=== PATIENT | female | born 1980 | race Caucasian/White ===

== ENCOUNTER 2023-03-14 21:07 | Outpatient (REF) | payer OTHER, SELFPAY ==
[2023-03-19 19:15] LABS: Age Gdln ACOG Testing Note (.); HPV Aptima Negative (Negative); IGP, Aptima HPV, rfx 16/18,45 Note (.)
== END 2023-03-14 21:08 | disposition home or self-care (01) ==
LOC: LAB 21:07
PROVIDERS: Visit Provider Obstetrics & Gynecology
DX: Z01.419 Encounter for gynecological examination (general) (routine) without abnormal findings (principal)
CPT/HCPCS: 87624; G0145

== ENCOUNTER 2024-03-25 11:46 | Outpatient (REF) | payer OTHER, SELFPAY | END 2024-03-25 11:47 | disposition home or self-care (01) | LOC: LAB 11:46 | PROVIDERS: Visit Provider Obstetrics & Gynecology | DX: Z01.419 Encounter for gynecological examination (general) (routine) without abnormal findings (principal) | CPT/HCPCS: 88175 ==

== ENCOUNTER 2025-03-27 19:21 | Outpatient (REF) | payer OTHER, SELFPAY ==
--- OUTSIDE RECORDS SUMMARY | 2025-03-27 19:41 | XMS_ITS | CCD ---
Author Organization [facility] Care Team Providers Care City Supervisor Name Role Phone Deneen Smith Unavailable [phone] ALTAF SÁNCHEZ Primary Care Physician LUIS, DR BROTHERS Admitting Unavailable LUIS, DR BROTHERS Attending Unavailable LUIS, DR BROTHERS Primary Care Unavailable JOSE, DR BARRY Johnson Consulting Unavailable LUIS, DR BROTHERS Consulting Unavailable HOOD LOPEZ, DR SHERIE De Leon Admitting Juan Luis MORATAYA JR, DR SHERIE De Leon Attending Unavailfarideh SMITH, DR BROTHERS Primary Care Unavailable JOSE, DR BARRY Johnson Consulting Unavailable HOOD LOPEZ, DR SHERIE De Leon Consulting Unavailfarideh MORATAYA JR, DR SHERIE De Leon Admitting Unavailfarideh MORATAYA JR, DR SHERIE De Leon Attending Unavailfarideh SMITH, DR BROTHERS Primary Care Unavailable RADHA, DR MARNIE Quan Consulting Unavailable HOOD LOPEZ, DR SHERIE De Leon Consulting UnavailDanisha Rivas Attending Unavailable ANISA PATE Attending Unavailable Travis Orlando PA-C Primary Care Provider [phone] Altaf Sánchez MD Primary Care Provider ALBARO ALVAREZ Attending Unavailable ADITYA HERNANDEZ Attending Unavailable JR. TELLO GEORGE C Attending Troya nikita TELLO JR., GEORGE C Referring UnavailDENEEN Islas Attending Unavailable ADITYA HERNANDEZ Attending Unavailable ANISA PATE Referring Unavailable DENEEN SMITH Referring Unavailable Medications Current Medications Medication Drug Class(es) Dates Sig (Normalized) Sig (Original) Tylenol (15 sources) Start: 10-02-2019 Tylenol Oral, Daily, PRN as needed for pain, Refills(s) 0 Start Date: 10/02/19 Status: Ordered End: 03-27-2025 take 1 tablet by mouth every six hours as needed acetaminophen (Tylenol) 500 MG tablet Take 500 mg by mouth every 6 (six) hours if needed 03/27/2025 Discontinued acetaminophen (T YLENOL) 325 mg cap Take 325 mg by mouth as needed. 0 Active Comment on above: Take 325 mg by mouth as needed. empagliflozin 25 mg oral tablet (2 sources) Sodium-Glucose Cotransporter 2 Inhibitor Start: take 25 mg by mouth once daily Jardiance 25 MG Take 25 mg by mouth 1 (one) time each day at the same time 02/25/2025 Active fluconazole 100 mg oral tablet (2 sources) Azole Antifungal Start: End: take 1 tablet by mouth once daily fluconazole (Diflucan) 100 MG tablet Indications: Burning with urination , Vaginal discharge Take 1 tablet (100 mg) by mouth Daily for 10 days 10 tablet 03/27/2025 04/06/2025 Active hydroCHLOROthiazide 12.5 mg / lisinopril 20 mg oral tablet (15 sources) Thiazide Diuretic, Angiotensin Converting Enzyme Inhibitor Start: take 1 tablet by mouth once daily lisinopril-hydroCH LOROthiazide (PRINZIDE,ZESTORET IC) 20-12.5 mg per tablet Take 1 tablet by mouth daily. 03/31/2020 Active Comment on above: Take 1 tablet by donte th once daily. 24 hr metFORMIN hydrochloride 750 mg extended release oral tablet (15 sources) Biguanide Start: 024 metformin 750 mg ER Tab Refills(s) 0 Start Date: 09/10/24 Status: Ordered Start: 04-08-2020 take 1 tablet by donte th once daily metFORMIN (GLUCOPHAGE) 500 mg tablet Take 500 mg by mouth daily. 05/01/2020 Active Comment on above: Take 500 mg by mouth once daily. mupirocin 0.02 mg/mg topical ointment (1 source) RNA Synthetase Inhibitor Antibacterial Start: 01-26-2021 mupirocin (BACTROBAN) 2 % ointment APPLY TO AFFECTED AREA EVERY DAY 01/26/2021 Active rosuvastatin calcium 20 mg oral tablet (9 sources) HMG-CoA Reductase Inhibitor Start: 11-19-2024 rosuvastatin (Crestor) 20 MG tablet 1 (one) time each day at the same time 11/19/2024 Active Completed/Discontinued Medications Medication Drug Class(es) Dates Sig (Normalized) Sig (Original) ciprofloxacin 500 mg oral tablet (2 sources) Quinolone Antimicrobial Start: 2 Cipro 500 mg Tab 500 mg = 1 tab(s), Oral, As Directed, Take 1 tab the day before the procedure, then take 1 tab after the procedure., # 2 tab(s), Refills(s) 0, Pharmacy: [facility]/pharmacy #[id number], 170, cm, 01/11/22 12:13:00 EDT, Height/Length Dosing, 111, kg, 01/11/22 12:13:... Start Date: 01/11/22 Status: Ordered diclofenac sodium 0.01 mg/mg topical gel (9 sources) Nonsteroidal Anti-inflammatory Drug Start: 4 End: 5 Voltaren Arthritis Pain 1 % gel apply topically TO KNEES TWICE DAILY 11/24/2023 03/27/2025 Discontinued methylPREDNISolone (9 sources) Corticosteroid Start: 5 End: 5 methylPREDNISolone (Medrol Dospak) 4 MG tablets Indications: Acute pain of right knee Follow schedule on package instructions 21 tablet 11/26/2024 03/27/2025 Discontinued Start: 11-26-2024 methylPREDNISo lone (Medrol Dospak) 4 MG tablets Indications: Acute pain of right knee Follow schedule on package instructions 21 tablet 11/26/2024 Active Problems Active Problems Problem Classification Problem Date Documented Date Episodic/Chronic Calculus of urinary tract (11 sources) History of calculus of kidney; Translations: [Personal history of urinary calculi] Onset: 01-11-2022 Episodic Cancer of uterus (5 sources) Malignant neoplasm of endometrium of corpus uteri ; Translations: [Malignant neoplasm of endometrium] Onset: 08-24-2018 08-24-2018 Chronic Essential hypertension (3 sources) Hypertensive disorder 08-07-2019 Chronic Genitourinary symptoms and ill-defined conditions (16 sources) Blood in urine; Translations: [Hematuria, unspecified] Onset: 01-11-2022 Episodic Immunizations and screening for infectious disease (2 sources) Exposure to sexually transmissible disorder; Translations: [Contact with and (suspected) exposure to infections with a predominantly sexual mode of transmission] 03-27-2025 Episodic Other aftercare (1 source) History of malignant neoplasm of endometrium; Translations: [Encounter for follow-up examination after completed treatment for malignant neoplasm] Episodic Other connective tissue disease (4 sources) Pain of toes of bilateral feet; Translations: [Pain in right toe(s)] 01-07-2025 Episodic Other diseases of kidney and ureters (2 sources) Renal mass 08-28-2019 Chronic Other diseases of kidney and ureters (1 source) Other specified disorders of kidney and ureter; Translations: [OTHER SPEC DISORDERS KIDNEY URETER] Onset: 02-02-2022 Chronic Other diseases of kidney and ureters (3 sources) Acquired renal cyst without neoplastic change; Translations: [Cyst of kidney, acquired] Onset: 01-11-2022 Episodic Other diseases of kidney and ureters (3 sources) Cyst of kidney 10-27-2020 Episodic Other female genital disorders (2 sources) Vaginal discharge; Translations: [Other specified noninflammatory disorders of vagina] 03-27-2025 Episodic Other male genital disorders (3 sources) Cyst of epididymis 10-12-2020 Episodic Other screening for suspected conditions (not mental disorders or infectious disease) (6 sources) Encounter for screening mammogram for malignant neoplasm of breast; Translations: [Patient encounter status] Onset: 07-22-2022 Episodic Other skin disorders (4 sources) Ingrowing nail; Translations: [Ingrowing nail] 01-07-2025 Episodic Skin and subcutaneous tissue infections (4 sources) Paronychia of toe of right foot; Translations: [Cellulitis of right toe] 01-07-2025 Episodic Unclassified (3 sources) Asymptomatic microscopic hematuria 01-11-2022 Past or Other Problems Problem Classification Problem Date Documented Da te Episodic/Chronic Abdominal pain (3 sources) Left flank pain; Translations: [Unspecified abdominal pain] Onset: 02-02-2022 08-07-2019 Episodic Mood disorders (1 source) Mood disorders Onset: 05-05-2021 05-05-2021 Other diseases of kidney and ureters (4 sources) Cyst of kidney, acquired; Translations: [CYST OF KIDNEY ACQUIRED] Onset: 05-03-2022 Episodic Other upper respiratory disease (1 source) Bleeding from nose; Translations: [Epistaxis] Onset: 03-18-2021 03-18-2021 Episodic Other upper respiratory disease (1 source) Deviated nasal septum; Translations: [Deviated nasal septum] Onset: 03-18-2021 03-18-2021 Episodic Results Test Name Value Interpretation Reference Range Facility Urinalysis macro (dipstick) panel (U)on 03-27-2025 Bilirubin, UA Negative Negative - 4(70) +++ mg/dL [facility] Blood, UA Negative Negative - 50 Jone/mcL [facility] Clarity, UA Clear [facility] Color, UA Yellow [facility] Glucose, UA Positive Negative - 2000(110) ++++ mg/dL [facility] Interpretation and review of laboratory results Abnormal [facility] Ketones, UA Negative Negative - 160(16) ++++ mg/dL [facility] Leukocytes, UA Negative Negative - 500+++ Emerald/mcL [facility] Nitrite, UA Negative Negative - Positive [facility] pH, UA 6 5 - 9 [facility] Protein, UA Negative Negative - 2000(20) ++++ mg/dL [facility] Spec Grav, UA 1.02 1 - 1.03 [facility] Urobilinogen, UA 1.0 0.2 - 12 mg/dL [facility] BI MAMMOGRAM SCREENING TOMOS YNTHESIS BILATERALon 09-24-2024 BI MAMMOGRAM SCREENING TOMOSYNTHESIS BILATERAL This is a summary report. The complete report is available in the patient's medical record. If you cannot access the medical record, please contact the sending organization for a detailed fax or copy. Examination: BI MAMMOGRAM SCREENING TOMOSYNTHESIS BILATERAL Clinical History: Breast cancer screening Technique: Screening digital mammography study of both breasts was performed with 2-D and 3-D tomosynthesis imaging. Study was compared to the prior exam dated 08/29/2023. Findings: There is no evidence of interval dominant spiculated mass, grouped microcalcifications, or skin thickening which would be suggestive of malignancy. Benign-appearing asymmetric density in the superolateral aspect of the right breast similar to the prior study. IMPRESSION: Impression: No specific evidence of malignancy seen in either breast. BIRADS 2 - Benign Findings DENSITY: There are scattered areas of fibroglandular density. FOLLOW-UP: Routine Screening Mammogram ELECTRONICALLY SIGNED BY: Forrest Vergara M.D. Normal Not Available Urology Office/Clinic Noteon 09-10-2024 Urology Office/Clinic Note Urology Office/Clinic Note Chief Complaint 1 yr fu HPI Staff Pt here for 1yr f/u. KUB NOMS 08/27/24 - No stones. ELYSE NOMS 08/27/24 - No stones or hydro. Previous Dx: kidney stone, asymptomatic microscopic hematuria, renal cyst Dysuria: no Incomplete bladder emptying: no Hematuria: no Frequency: q3-4hrs Urgency: no Nocturia: 0-1x Stream: good stream Leaking: no Post void dripping: no Wearing pads/ Depends: no Urge incontinence: no Stress incontinence: no Incontinence without Sensory Awareness: no Abdominal pain: no Flank pain: no Sexual complaints: no Review of Systems PHQ Score Initial Depression Screen Score: 0 SCORE Physical Exam Vitals & Measurements HR: 87(Peripheral) BP: 119/79 HT: 67 in HT: 170 cm WT: 105 kg WT: 231.485 lb BMI: 36.33 Assessment/Plan Former DDM, 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 BBSQ 5 very good control. No urinary complaints. 1. Kidney stone (N20.0: Calculus of kidney) Pt has passed several stones previously. CT AP w 01/28/22 showed 3mm distal R ureteral stone without hydro (no pain at the time, was done due to microhematuria). KUB done 05/03/22 - No visible urinary tract calculi. Pt never saw stone pass. KUB 06/27/23 1.3 cm calculi overlying the mid to upper pole of the left renal shadow. ELYSE 06/27/23 neg for stones or hydronephrosis. Declined metabolic eval. KUB NOMS 08/27/24 - No stones. ELYSE NOMS 08/27/24 - No stones or hydro. No stone passage in the past year. Had 1 episode of flank pain that she thought was a stone starting but she laid on a heating pad and the pain improved luckily. Denies gross hematuria. No issues w UTIs. Has drastically increased water intake and cut down on pop (very rare now). -f/u 1 yr w KUB/ELYSE 2. Asymptomatic microscopic hematuria (R31.21: Asymptomatic microscopic hematuria) Neg workup including cysto, cytology and CT spring 2021 None on UA today. Denies gross hematuria. Ordered: Urnls Dip Stick Auto w/o Microscopy POC [id number] 3. Renal cyst, left (N28.1: Cyst of kidney, acquired) Cyst was noted on CT AP 01/28/22 Renal US 06/27/23 9 x 9 x 5 mm anechoic area of the left kidney is most likely a cyst. -Follow up is not warranted for simple cysts Follow-up With When Contact Information Dr Danisha Salazar/Susie Ruiz PAC in 1 yr w KUB/ELYSE prior Additional Instructions: Patient Education Kidney Stones, [id number] Problem List/Past Medical History Ongoing Asymptomatic microscopic hematuria Kidney stone Renal cyst, left Historical Epididymal cyst Gross hematuria Hypertension Uterine cancer Procedure/Surgical History Cystoscopy (02/07/2022), Colonoscopy (06/2020), Hysterectomy (12/17/2016). Medications hydrochlorothiazide-lisinopril 12.5 mg-20 mg Tab, 1 tab(s), Oral, Daily metformin 750 mg ER Tab Tylenol, Oral, Daily, PRN Allergies No Known Allergies Social History Alcohol - Low Risk, 08/28/2019 Current. Wine. 1-2 times per month., 09/10/2024 Substance Abuse - Denies Substance Abuse, 05/29/2020 Never., 09/10/2024 Tobacco - Denies Tobacco Use, 08/28/2019 Former smoker, quit more than 30 days ago Tobacco Use:., 09/10/2024 Family History Diabetes mellitus: Brother. Diabetes mellitus type 2: Mother. Heart disease: Father. Immunizations Vaccine Date Status Comments influenza virus vaccine, inactivated - Not Given Postpone due to refusal diphtheria/pertussis, acel/tetanus adult 10/03/2017 Recorded Lab Results Ambulatory Point of Care Results Bilirubin Urine Dipstick: Negative (09/10/24 11:03:00) Blood Urine Dipstick: Negative (09/10/24 11:03:00) Glucose Urine Dipstick: Negative (09/10/24 11:03:00) Ketones Urine Dipstick: Trace - 5 mg/dl (09/10/24 11:03:00) Leukocytes Urine Dipstick: Negative (09/10/24 11:03:00) Nitrite Urine Dipstick: Negative (09/10/24 11:03:00) Protein Urine Dipstick: Negative (09/10/24 11:03:00) Specific [place] Urine Dipstick: 1.025 (09/10/24 11:03:00) Urine Appearance Urine Dipstick: Clear (09/10/24 11:03:00) Urine Color Urine Dipstick: Yellow (09/10/24 11:03:00) Urobilinogen Urine Dipstick: Normal 0.2-1 EU/dl (09/10/24 11:03:00) pH Urine Dipstick: 5.5 (09/10/24 11:03:00) Normal [facility] Comment on above: Result Comment: Electronically Signed By : ANISA PATE PA-C.isabelle\Date and Time Signed: 09/10/24 11:34 EST US RENAL COMPLETEon 08-27-20 US RENAL COMPLETE EXAM: Renal Ultrasound. REASON FOR EXAM: Kidney stone. COMPARISON: 06/27/2023 ultrasound. TECHNIQUE: Real-time ultrasonographic evaluation of the kidneys is performed with color flow Doppler. FINDINGS: Right kidney: Normal parenchymal thickness and echogenicity. Left kidney: Normal parenchymal thickness and echogenicity. Uniform and symmetric blood flow in each kidney by Doppler ultrasound. Negative for hydronephrosis, retroperitoneal mass, fluid collection or stone. Bladder: Bladder contains fluid. Both ureteral jets are documented in the urinary bladder. Aorta and inferior vena cava: Patent by Doppler ultrasound. Measurements: Right kidney: 12.9 x 6.2 x 7.6 cm Left kidney: 12.5 x 6 x 5.8 Bladder Prevoid: 257.8 mL Bladder Postvoid: 18.2 mL IMPRESSION: Negative retroperitoneal Ultrasound. Urolithiasis not identified. *This report is generated using voice recognition reporting (Drip In). On occasion TrenDemone erroneously drops words from the report or replaces the spoken word with similar sounding words. Please call with any questions/concerns regarding this report.* Dictated and transcribed 08/27/2024/tm This report has been electronically signed and approved by the interpreting radiologist. Normal Not Available XR ABDOMEN 1 VIEWon 08-27-20 XR ABDOMEN 1 VIEW XR ABDOMEN 1 VIEW Clinical History: History of kidney stones Reference Exam: None Findings: The abdominal bowel gas pattern is nonobstructive. No mass, organomegaly, or suspicious calcification. Negative for free intraperitoneal air. The skeleton is unremarkable. Impression: Negative for intestinal stasis. Urolithiasis is not identified by routine radiographic assessment. Dictated on: 08/27/2024 10:13 AM This report has been electronically signed and approved by the interpreting Radiologist. Normal Not Available MG MAMM SCREEN 3D BRI CADon 07-22-2022 MG MAMM SCREEN 3D BRI CAD Patient: ANISA SAMANO Exam Date: 07/22/2022 : 1980 Gender:F Ordering : DR DENEEN SMITH . Admission #: [id number] Family : Order #: [id number] CLICK HERE TO VIEW EXAM RADIOLOGY REPORT PROCEDURE: MAMMOGRAM SCREENING 3D BILATERAL CAD COMPARISON: MG MAMM SCREEN 3D BRI CAD, 07/21/2021. MG MAMM SCREEN BRI W CAD, 06/30/2020. INDICATIONS: Screening mammography Calculator Name NCI Breast Cancer Risk Assessment Tool 5 Year Breast Cancer Risk Not Reported. Lifetime Breast Cancer Risk Not Reported. Personal Breast Cancer No Personal Ovarian Cancer No Treatments None Family Cancers None LOCATION: [facility] BREAST COMPOSITION: Heterogeneously dense,which may obscure small masses. FINDINGS: DIAGNOSTIC CATEGORY 1--NEGATIVE. NO CHANGE FROM COMPARISON ASSESSMENT. Scattered benign-appearing nodules are present. RIGHT BREAST: No significant suspicious finding. LEFT BREAST: No significant suspicious finding. RECOMMENDATIONS: ROUTINE MAMMOGRAM AND CLINICAL EVALUATION IN 12 MONTHS. PLEASE NOTE: A NORMAL MAMMOGRAM DOES NOT EXCLUDE THE POSSIBILITY OF BREAST CANCER. A CLINICALLY SUSPICIOUS PALPABLE LUMP SHOULD BE BIOPSIED. Dictated by: Barry Garcia MD on 07/22/2022 at 13:04 Approved by: Barry Garcia MD on 07/22/2022 at 13:05 Normal [facility] XR KUB 1 VIEWon 05-04-2022 XR KUB 1 VIEW EXAMINATION: XR KUB 1 VIEW HISTORY: H/O: urinary stone ; follow-up left kidney stone COMPARISON: No relevant comparison available. FINDINGS: KIDNEY/URETER - RIGHT: No visible renal or ureteral calcifications. KIDNEY/URETER - LEFT: No visible renal or ureteral calcifications. PELVIS: No visible ureteral stones. BOWEL: No abnormal dilation or deviation. BONES: No acute abnormality. OTHER: Negative. No abnormal gaseous collections. IMPRESSION: 1. No visible urinary tract calculi. Electronically authenticated by: MARNIE GARCIA Date: 2022-05-04 12:03 Normal [facility] CT ABD/PELV W CONon 05-13-[address] ABD/PELV W CON EXAMINATION: CT ABD/PELV W CON, 01/28/2022 10:17 AM EDT HISTORY: Microscopic hematuria COMPARISON: None. TECHNIQUE: CT scan of the abdomen and pelvis was performed without IV contrast. CT dose reduction technique was used, including Automated Exposure Control. FINDINGS: LUNG BASES: No visible pulmonary or pleural disease. LIVER: Hypoattenuation, hepatic steatosis is favored BILIARY: No dilatation or calcification. PANCREAS: No lesion, fluid collection, ductal dilatation, or atrophy. SPLEEN: No enlargement or focal lesion. ADRENALS: No mass or enlargement. KIDNEYS: 3 mm distal right ureterolith, axial image 130, 1 cm proximal to the ureterovesical junction. No right hydronephrosis or hydroureter Normal left. BOWEL/MESENTERY: Nonobstructive bowel gas pattern. Normal appendix. AORTA/VASCULAR: No aneurysm or dissection. RETROPERITONEUM: No mass or adenopathy. LYMPH NODES: No adenopathy. URINARY BLADDER: No visible focal wall thickening, lesion, or calculus. PELVIC ORGANS: Hysterectomy. The ovaries are prominent bilaterally symmetric ABDOMINAL WALL: Laxity of the ventral abdominal wall the umbilicus with a 1 cm umbilical hernia containing fat without strangulation BONES: No bony lesion or fracture. OTHER: Call result initiated through operations. IMPRESSION: 3 mm distal right ureterolith with no obstructive uropathy Hepatic steatosis Electronically authenticated by: BARRY GARCIA Date: 2022-01-28 13:32 Normal [facility] ANISA SAMAN[facility] ([id number]) 1980 F Date Time Provider Department 12/10/21 THUY SIN During your visit today, we recorded the following information about you: Thuy Sin APRN.MERCHANT TAILOR 12/10/2021 1:11 PM Signed Please let patient know urinalysis showing a small amount of red blood cells in the urine. The urine culture is negative for an infection. I would recommend patient see a urologist given there is some blood in the urine, along with patients reports of blood noted after urination. She can see a local urologist-I placed an order in our system which can be printed and mailed if needed. The most recent pelvic US she had completed at [facility] was 05/2021 and was normal. thanks Michelle Mackey RN 12/10/2021 1:24 PM Signed Spoke with patient and relayed message from [employer]ODUCT SAF[employer]Y EXPERT. Agreeable to plan. Will see her local Urolgist (she has a hx kidney stones). Order and UA results emailed to patient per her request Allergies As of Date: 12/10/2021 (No Known Allergies) Date Reviewed: 12/10/2021 Reviewed by: Thuy Sin APRN.MERCHANT TAILOR - Fully Assessed Reason for Visit: Results [95] Primary Visit Diagnosis:Hematuria, unspecified type [R31.9] Order(s):CONSULT TO UROLOGY [9041] Order #: [id number]: 1 FUTURE Prescriptions as of 12/10/2021 - metFORMIN (GLUCOPHAGE) 500 mg tablet Take 500 mg by mouth once daily. - acetaminophen (TYLENOL) 325 mg cap Take 325 mg by mouth as needed. - lisinopril-hydrochlorothiazide (PRINZIDE,ZESTORETIC) 20-12.5 mg per tablet Take 1 tablet by mouth once daily. Problem List As Of Date 12/10/2021 Noted Resolved Endometrial cancer (HCC) [C54.1] 08/24/2018 Encounter Status:Closed by MICHELLE MACKEY on 12/10/21 Normal [facility] URINE CULTUREon 12-09-2021 Bacteria identified Cx Nom (U) <10,000 CFU/ml Mixed microbiota Abnormal [facility] Bacteria Ur Culton Bacteria identified Cx Nom (U) ORGANISM ID: 1 <10,000 CFU/ml Mixed microbiota Insignificant colony count. No further workup. Normal [facility] Comment on above: Performed By: #### [id number] #### [facility] CLIA [id number] [address] [place], [place] [id number] [address] [place] CNOVSPon 12-08-2021 CNOVSP Visit (SP) Office (G YNML) ANISA SAMANO ([id number]) 1980 F Date Time Provider Department 12/08/21 1:15 PM THUY SIN During your visit today, we recorded the following information about you: Temperature Pulse Respiration Blood pressure 98.6 degrees 101/minute 14/minute 133/80 Weight 111.5 kg Thuy Sin, FIRST FRONT VENTILATOR.MERCHANT TAILOR 12/10/2021 1:11 PM Signed DATE OF SERVICE: 12/08/2021 PROBLEM: Follow up for endometrial cancer. HPI: Ms. Samano is a 41 year old female with past medical history of HTN and prior essure who underwent supra-cervical abdominal hysterectomy and salpingectomy on 12/30/2016 for abnormal uterine bleeding. Her pathology came back c/w grade 1 endometrial cancer limited to the endometrium. Intra-operatively per operative report, her ovaries were normal. 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 FINAL DIAGNOSIS 1. Uterus, supracervical hysterectomy (BH17-71): Endometrium - Well-differentiated endometrial adenocarcinoma, mucinous type, FIGO grade 1, associated with complex atypical endometrial hyperplasia. Myometrium - Adenomyosis. 2. Fallopian tubes, right and left, excision (BS17-71) - Negative for neoplasm. COMMENT The endometrium is almost completely replaced by a proliferative lesion including atypical endometrial hyperplasia and well-differentiated mucinous adenocarcinoma. The atypical hyperplasia slightly predominates. Myometrial invasion is not identified. Vascular invasion is not identified. ? MMR testing was normal. CT scan C/A/P 08/01/2017 IMPRESSION: 1. No evidence of intra-abdominal/pelvic metastases. 2. Previously noted cystic density in the left adnexa has resolved. 3. 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 4. Nonobstructing left renal stone. 5. Diffuse fatty infiltration of the liver. IMPRESSION: 1. Nonspecific subcentimeter sclerotic density in the T7 vertebral body, stable. 2. Otherwise no evidence of intrathoracic metastases. No interval change since 02/07/2017. 3. Findings compatible with previous granulomatous disease. 03/12/2019 Pelvis US Nonspecific hyperechoic (1.4 x 1.0 x 1.1) within the left ovary. Hemorrhagic cyst vs. Dermoid, favoring hemorrhagic. New since 2017. Pelvic US 09/27/2019 PELVIC US 05/30/2020 PELVIC ULTRASOUND 05/2021 SUBJECTIVE HISTORY: Anisa Samano reports that she feels well. No vaginal bleeding or discharge. No shortness of breath, cough, or chest pain. No abdominal pain, nausea, vomiting, diarrhea, or constipation. No dysuria, gross hematuria, urinary frequency, urinary urgency, or incontinence. Her ECOG performance status is zero (fully active, able to carry on all pre-disease performance without restriction). Continues to follow regularly with scholastic aptitude test grader close to home OBJECTIVE: BP 133/80 Pulse 101 Temp 37 ?C (98.6 ?F) Resp 14 Wt 111.5 kg (245 lb 12.8 oz) BMI 38.22 kg/m? GENERAL: alert, oriented, pleasant and cooperative. HEENT: Normocephalic and atraumatic. HEART: Regular rate and rhythm, no murmurs. LUNGS: Clear to auscultation bilaterally. Good air exchange. ABDOMEN: Abdomen soft, non-tender, nondistended PELVIC: External genitalia, anus and urethral meatus are normal in appearance and without lesions. Vagina and remaining cervix are normal in appearance on speculum examination. Bimanual pelvic and rectovaginal examination were negative for urethral, bladder or pelvic masses, parametrial thickening or cul-de-sac nodularity. There were no rectal masses. 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 12/2016 Normal MMR expression Ovarian cysts-resolved ?hematuria PLAN: - doing well, no clinical evidence of disease recurrence on exam - patient notes blood after urination-unsure of source. Only noted when toileting. Will follow up with UA and urine culture. - pap/hpv up to date - annual pelvic ultrasound-most recently completed 05/2021 OSH-reviewed and normal. - chest xray 10/2020 normal - mammogram up to date at OSH - RTC 12 months, patient elects to following with in [place]. Can provide any records that are needed to help facilitate this transfer of care. - may return to our office in the future with any questions or concerns Thuy Sin APRN.MERCHANT TAILOR Medical Decision Making: Problems: Moderate: New problem with uncertain prognosis Data: Unique test(s) ordered: 1 Risk: Low: Low risk from testing/treatment Medical Decision Making Level: 3 - Low Referring Provider: THUY SIN [[id number]] Allergies As of Date: 12/08/2021 (No Known Allergies) Date Reviewed: (more content not included)... Normal [facility] Urinalysis complete panel (U )on 12-08-2021 Bilirubin Ql (U) Negative Negative [facility] Clarity (Unsp spec) Clear Clear [facility] Color (U) Light Yellow Yellow [facility] Epithelial cells LM.HPF (Urine sed) [#/Area] Few [facility] Glucose Test strip (U) [Mass/Vol] Negative Negative [facility] Hemoglobin Ql (U) Negative Negative [facility] Ketones Ql (U) Negative Negative [facility] Leukocyte esterase Test strip Ql (U) 75 Emerald/mL Abnormal Negative [facility] Nitrite Ql (U) Negative Negative [facility] pH (U) 5.5 [pH] 5.0 - 8.0 [facility] Protein (U) [Mass/Vol] Negative Negative [facility] RBC LM.HPF (Urine sed) [#/Area] 3-5 /HPF Abnormal 0-3 /HPF [facility] Specific gravity (U) [Rel density] 1.028 1.005 - 1.030 [facility] Urobilinogen Ql (U) Negative Negative [facility] WBC LM.HPF (Urine sed) [#/Area] 6-10 /HPF Abnormal 0-5 /HPF [facility] Bilirubin Ql (U) Negative Normal Negative [facility] Comment on above: Order Comment: Specimen Type: URINE SPEC IMEN Ordering Facility: [facility] Address: [address] [place] [id number] Performed By: #### 2 4356-8 #### [facility] CLIA [id number] [place] [address] [place] Clarity (Unsp spec) Clear Normal Clear [facility] Comment on above: Order Comment: Specimen Type: URINE SPEC IMEN Ordering Facility: [facility] Address: [address] [place] [address] Performed By: #### 2 4356-8 #### [facility] CLIA [id number] [address] [place] [address] [place] Color (U) Light Yellow Normal Yellow [facility] Comment on above: Order Comment: Specimen Type: URINE SPEC IMEN Ordering Facility: [facility] Address: [address] [place] [address] Performed By: #### 2 4356-8 #### [facility] CLIA [id number] [address] [place] [address] [place] Epithelial cells LM.HPF (Urine sed) [#/Area] Few Normal [facility] Comment on above: Order Comment: Specimen Type: URINE SPEC IMEN Ordering Facility: [facility] Address: [address] [place] [address] Performed By: #### 2 4356-8 #### [facility] CLIA [id number] [address] [place] [address] [place] Glucose Test strip (U) [Mass/Vol] Negative Normal Negative [facility] Comment on above: Order Comment: Specimen Type: URINE SPEC IMEN Ordering Facility: [facility] Address: [address] [place] [address] Performed By: #### 2 4356-8 #### [facility] CLIA [id number] [address] [place] [address] [place] Hemoglobin Ql (U) Negative Normal Negative [facility] Comment on above: Order Comment: Specimen Type: URINE SPEC IMEN Ordering Facility: [facility] Address: [address] [place] [address] Performed By: #### 2 4356-8 #### [facility] CLIA [id number] [address] [place] [address] [place] Ketones Ql (U) Negative Normal Negative [facility] Comment on above: Order Comment: Specimen Type: URINE SPEC IMEN Ordering Facility: [facility] Address: [address] [place] [address] Performed By: #### 2 4356-8 #### [facility] CLIA [id number] [address] [place] [address] [place] Leukocyte esterase Test strip Ql (U) 75 Emerald/mL Abnormal Negative [facility] Comment on above: Order Comment: Specimen Type: URINE SPEC IMEN Ordering Facility: [facility] Address: [address] [place] [address] Performed By: #### 2 4356-8 #### [facility] CLIA [id number] [address] [place] [address] [place] Nitrite Ql (U) Negative Normal Negative [facility] Comment on above: Order Comment: Specimen Type: URINE SPEC IMEN Ordering Facility: [facility] Address: [address] [place] [address] Performed By: #### 2 4356-8 #### [facility] CLIA [id number] [address] [place] [address] [place] pH (U) 5.5 [pH] Normal 5.0-8.0 [facility] Comment on above: Order Comment: Specimen Type: URINE SPEC IMEN Ordering Facility: [facility] Address: [address] [place] [address] Performed By: #### 2 4356-8 #### [facility] CLIA [id number] [address] [place] [address] [place] Protein (U) [Mass/Vol] Negative Normal Negative [facility] Comment on above: Order Comment: Specimen Type: URINE SPEC IMEN Ordering Facility: [facility] Address: [address] [place] [address] Performed By: #### 2 4356-8 #### [facility] CLIA [id number] [address] [place] [address] [place] RBC LM.HPF (Urine sed) [#/Area] 3-5 /HPF Abnormal 0-3 /HPF [facility] Comment on above: Order Comment: Specimen Type: URINE SPEC IMEN Ordering Facility: [facility] Address: [address] [place] [address] Performed By: #### 2 4356-8 #### [facility] CLIA [id number] [place] Specific gravity (U) [Rel density] 1.028 Normal 1.005-1.03 0 [facility] Comment on above: Order Comment: Specimen Type: URINE SPEC IMEN Ordering Facility: [facility] Address: [address] [place] [address] Performed By: #### 2 4356-8 #### [facility] CLIA [id number] [address] [place] [address] [place] Urobilinogen Ql (U) Negative Normal Negative [facility] Comment on above: Order Comment: Specimen Type: URINE SPEC IMEN Ordering Facility: [facility] Address: [address] [place] [address] Performed By: #### 2 4356-8 #### [facility] CLIA [id number] [address] [place] [address] [place] WBC LM.HPF (Urine sed) [#/Area] 6-10 /HPF Abnormal 0-5 /HPF [facility] Comment on above: Order Comment: Specimen Type: URINE SPEC IMEN Ordering Facility: [facility] Address: [address] [place] [address] Performed By: #### 2 4356-8 #### [facility] CLIA [id number] [address] [place] [address] [place] MOLECULARon 12-06-2017 MOLECULAR PROCEDURE REPORTSpec im #: [id number] Physician: STEPHEN BADILLOPECIMEN SUBMITTEDA: 1 BLOCK (BH17-71; 2) PROCEDURE(S)MMR STATUS Date Ordered: 12/06/2017 Date Reported: 12/10/2017 Procedure Results and InterpretationImmunohistochemistry (IHC) for mismatch repair proteins (MMR) inendometrial carcinomaFinal Diagnosis:Mismatch repair proteins (MLH1, PMS2, MSH2, and MSH6) are expressed incarcinoma nucleiIHC Results (expressed, not expressed or partial loss of expression)PMS2 expressedMLH1 expressedMSH6 expressed MSH2 expressedIHC for MMR proteins was performed on tissue block BH17-71 with appropriatecontrols.Immunohistoche olya (IHC) testing is one of the standard tests completedon all endometrial carcinomas at [facility]. IHC stains for MMRproteins were performed to assist in screening for HNPCC (Carrero Syndrome). Immunohistochemical screen for the detection of MMR proteins is aneffective screen for Carrero syndrome in at least 95% of cases. As clinically indicated, and in the appropriate setting of geneticcounseling with informed patient consent, further molecular genetic testingmay be needed. For more information, please call the [facility] for [facility] at . References:1. Raven Woods et al. Immunohistochemistry versus microsatellite instabilitytesting for screening colorectal cancer patients at risk for hereditarynonpolyposis colorectal cancer syndrome. Am J Surg Pathol 2009, 33:1639-452. Padmini Woods, et al. Implementation of tumor testing for carrero syndrome inendometrial cancers at a large [facility]. Gynecol Oncol.2013, 130(1):121-63. Ariane JS, et al. Testing women with endometrial cancer to detect Lynchsyndrome. J Clin Oncol. 2011, 29:2517Laboratory Developed Test (LDT) Disclaimer:Positive and negative controls stain appropriately. Performancecharacteristics of immunohistochemical, immunofluorescent and chromogenicin-situ hybridization tests have been determined by [facility] Pathology and Laboratory Medicine [place] ([facility]) terrence manner consistent with CLIA requirements. One or more of these tests havenot been cleared or approved by the FDA. -[facility] is regulated under CLIA asqualified to perform high-complexity testing. These tests are used forclinical purposes. They should not be regarded as investigational or forresearch.Procedure Pathologist: Thierno Marquez M.D.Electronic SignatureCLINICAL DATANone provided. of Report: Date of Procedure: 12/06/2017Date of Receipt: 12/06/2017Submitted: FELICITAS MAHDI, MDDiagnostic interpretation performed at [facility], [address] [address]. Normal [facility] Comment on above: Performed By: #### COPATH ####See report for performing lab information. Vital Signs Date Time Vital Sign Value Performing Clinician Zahra moore 03-27-2025 11:15-0400 Body mass index (BMI) [Ratio] 33.8 kg/m2 Deneen Luis DO Work Phone: [facility] 03-27-2025 11:15-0400 Body weight 97.89 kg Deneen Luis DO Work Phone: [facility] 03-27-2025 11:15-0400 Diastolic blood pressure 70 mm[Hg] Deneen Luis DO Work Phone: [facility] 03-27-2025 11:15-0400 Systolic blood pressure 120 mm[Hg] Deneen Luis DO Work Phone: [facility] 01-28-2025 11:12-0400 Body height 170.2 cm Aditya Hernandez DPM Work Phone: [facility] 01-28-2025 11:12-0400 Body mass index (BMI) [Ratio] 36.34 kg/m2 Aditya Hernandez DPM Work Phone: [facility] 01-28-2025 11:12-0400 Body weight 105.23 kg Aditya Hernandez DPM Work Phone: [facility] 01-07-2025 14:23-0400 Body height 170.2 cm Aditya Hernandez DPM Work Phone: [facility] 01-07-2025 14:23-0400 Body mass index (BMI) [Ratio] 36.46 kg/m2 Aditya Hernandez DPM Work Phone: [facility] 01-07-2025 14:23-0400 Body weight 105.6 kg Aditya Hernandez DPM Work Phone: [facility] 09-10-2024 10:56-0500 Blood Pressure Location ANISA PATE [facility] 09-10-2024 10:56-0500 Diastolic blood pressure 79 mm[Hg] ANISA PATE [facility] 09-10-2024 10:56-0500 Heart rate 87 /min ANISA PATE [facility] 09-10-2024 10:56-0500 Systolic blood pressure 119 mm[Hg] ANISA PATE [facility] 02-07-2022 13:04-0400 Blood Pressure Location Sherie Morataya Jr. [facility] 02-07-2022 13:04-0400 Diastolic blood pressure 82 mm[Hg] Sherie Morataya Jr. [facility] 02-07-2022 13:04-0400 Heart rate 81 /min Sherie Morataya Jr. [facility] 02-07-2022 13:04-0400 Systolic blood pressure 135 mm[Hg] Sherie Morataya Jr. [facility] 01-11-2022 12:09-0400 Blood Pressure Location Sherie Morataya Jr. [facility] 01-11-2022 12:09-0400 Diastolic blood pressure 85 mm[Hg] Sherie Morataya Jr. [facility] 01-11-2022 12:09-0400 Heart rate 89 /min Sherie Morataya Jr. [facility] 01-11-2022 12:09-0400 Systolic blood pressure 132 mm[Hg] Sherie Morataya Jr. [facility] 12-08-2021 13:18-0400 Body temperature 98.6 [degF] Thuy Sin FIRST FRONT VENTILATOR.MERCHANT TAILOR Work Phone: [facility] 12-08-2021 13:18-0400 Body weight 111.49 kg Thuy Sin FIRST FRONT VENTILATOR.MERCHANT TAILOR Work Phone: [facility] 12-08-2021 13:18-0400 Diastolic blood pressure 80 mm[Hg] Thuy Sin FIRST FRONT VENTILATOR.MERCHANT TAILOR Work Phone: [facility] 12-08-2021 13:18-0400 Heart rate 101 /min Thuy Sin FIRST FRONT VENTILATOR.MERCHANT TAILOR Work Phone: [facility] 12-08-2021 13:18-0400 Respiratory rate 14 /min Thuy Sin FIRST FRONT VENTILATOR.MERCHANT TAILOR Work Phone: [facility] 12-08-2021 13:18-0400 Systolic blood pressure 133 mm[Hg] Thuy Sin FIRST FRONT VENTILATOR.MERCHANT TAILOR Work Phone: [facility] Encounters Encounter Date Encounter Type Care Provider Facility Start: 09-24-2025 ambulatory Danisha Salazar Facility:[facility] Start: 03-27-2025 End: 03-27-2025 Bamboo flowsheet Deneen Luis DO Work Phone: [facility] Start: 03-27-2025 End: 03-27-2025 Bamboo flowsheet Deneen Luis DO Work Phone: [facility] Start: 03-27-2025 End: 03-27-2025 Patient encounter procedure Deneen Luis DO Work Phone: [facility] Work Phone: Start: 03-27-2025 End: 03-27-2025 Periodic preventive med est patient 40-64yrs Deneen Luis DO Work Phone: [facility] Comment on above: Well woman exam with routine gynecological exam; Breast cancer screening by mammogram; Burning with urination; Exposure to STD; Vaginal discharge Start: 01-28-2025 End: 01-28-2025 Bamboo flowsheet Aditya Hernandez DPM Work Phone: [facility] Start: 01-28-2025 End: 01-28-2025 Bamboo flowsheet Aditya Hernandez DPM Work Phone: [facility] Start: 01-28-2025 End: 01-28-2025 ambulatory ADITYA HERNANDEZ Not Available Start: 01-28-2025 End: 01-28-2025 Postop follow up visit related to original px Aditya Hernandez DPM Work Phone: [facility] Comment on above: Ingrown nail (Primar y Dx); Paronychia of great toe, right; Pain in toes of both feet Start: 01-07-2025 End: 01-07-2025 ambulatory ADITYA HERNANDEZ Not Available Start: 01-07-2025 End: 01-07-2025 Office outpatient visit 15 minutes Aditya Hernandez DPM Work Phone: [facility] Comment on above: Ingrown nail (Primar y Dx); Paronychia of great toe, right; Pain in toes of both feet Start: 01-07-2025 End: 01-07-2025 Bamboo flowsheet Aditya Hernandez DPM Work Phone: [facility] Start: 01-07-2025 End: 01-07-2025 Bamboo flowsheet Aditya Hernandez DPM Work Phone: [facility] Start: 11-26-2024 End: 11-26-2024 ambulatory ALBARO ALVAREZ Not Available Start: 09-24-2024 End: 09-24-2024 ambulatory DENEEN SMITH Not Available Start: 09-10-2024 End: 09-10-2024 ambulatory ANISA Jo-Ann HERLINDA Facility:[facility] Start: 09-10-2024 End: 09-10-2024 Patient encounter procedure ANISA PATE [facility] Start: 08-27-2024 End: 08-27-2024 ambulatory ANISAARTHUR GAMEZRY Not Available Start: 05-10-2024 End: 05-21-2024 Telephone encounter Aditya Aquino FIRST FRONT VENTILATOR-MERCHANT TAILOR Work Phone: [facility] Start: 03-25-2024 End: 03-25-2024 ambulatory DENEEN SMITH Not Available Start: 03-04-2024 End: 03-04-2024 ambulatory KRYSTIAN CRUZ Not Available Start: 07-22-2022 End: 07-23-[address] DENEEN SMITH Facility: Start: 05-03-2022 End: 05-04-[address] SHERIE MORATAYA JR Facility:[facility] Start: 02-07-2022 End: 02-07-2022 Patient encounter procedure Sherie Morataya Jr. [facility] Start: 01-28-2022 End: 01-29-[address] SHERIE MORATAYA JR Facility:[facility] Start: 01-11-2022 End: 01-11-2022 Patient encounter procedure Sherie Morataya Jr. [facility] Start: 12-10-2021 Telephone encounter Thuydharmesh ramos APRN.CNP Work Phone: Gynecology Comment on above: Results Start: 12-08-2021 End: 12-08-2021 Follow-up encounter Thuy Wisemantoni REGALADO Work Phone: Gynecology Comment on above: Encounter for follow -up surveillance of endometrial cancer (Primary Dx); Hematuria, unspecified type Start: 12-08-2021 End: 12-08-2021 Patient encounter procedure Thuy Wisemantoni REGALADO Work Phone: [facility] Procedures Date Procedure Procedure Detail Performing Clinician Start: 03-27-2025 Urnls dip stick/tabl et rgnt non-auto w/o micrscp Deneen Smith DO Work Phone: Start: 02-07-2022 Cystoscopy Sherie hanson Jr. Start: 12-08-2021 End: 12-08-2021 Culture bacterial quanttative colony count urine Thuy Wisemantoni REGALADO Work Phone: Start: 06-18-2020 Colonoscopy Sherie Ricardo hanson Jr. Start: 12-17-2016 Hysterectomy Sherie hanson Jr. Plan of Treatment Date Care Activity Detail Author Start: 10-03-2027 DTaP,Tdap and Td Vaccines (2 - Td or Tdap) DTaP,Tdap and Td Vaccines (2 - Td or Tdap) [facility] Start: 10-03-2027 Urine microalbumin profile DTAP,TDAP,TD (2 - Td or Tdap) [facility] Start: 03-31-2026 End: 03-31-2026 Patient encounter procedure 03/31/2026 11:00 AM EDT Office Visit [facility] [address] [place] [id number] Deneen Smith DO [address] [place] [address] [facility] Start: 09-25-2025 HPV TESTING HPV TESTING [facility] Start: 09-25-2025 PAP TESTING PAP TESTING [facility] Start: 03-27-2025 End: 05-28-2026 MG Breast - bilateral Screening Bilateral screening mammogram Imaging Routine Breast cancer screening by mammogram Expected: 03/27/2025 (Approximate), Expires: 05/28/2026 [facility] Work Phone: Comment on above: Expected: 03/27/2025 (Approximate), Expires: 05/28/2026 Start: 03-27-2025 End: 03-27-2025 Patient encounter procedure 03/27/2025 11:00 AM EDT Office Visit [facility] [address] [place] [address] Deneen Smith DO [address] [place] [place], [place] [id number] [facility] Start: 01-23-2025 End: 01-23-2025 Patient encounter procedure 01/23/2025 1:00 PM EDT Office Visit [facility] [address] [place] [id number] Aditya Hernandez, DPM [address] [place] [address] [facility] Start: 05-19-2024 Influenza vaccination Influenza Vacc ine [facility] Start: 05-19-2021 Influenza vaccination INFLUENZA (#1) [facility] Start: 2019 Mammography MAMMOGRAM [facility] Start: 2000 Screening for malign ant neoplasm of cervix Pap Smear [facility] Start: 1997 Adult BMI Screening Adult BMI Screen ing [facility] Start: 1997 HEPATITIS C SCREENING HEPATITIS C SC REENING [facility] Start: 1997 HIV SCREENING HIV SCREENING [facility] Start: 1991 Adult depression screening assessment DEPRESSION SCREENING [facility] Start: 1991 Tobacco Screening Tobacco Screening [facility] Start: 1984 COVID-19 VACCINE (1) COVID-19 VACCIN E (1) [facility] CHLAMYDIA TRACHOMATI S (GENITO/STI) CHLAMYDIA TRACHOMATIS (GENITO/STI) Lab Routine Exposure to STD Ordered: 03/27/2025 [facility] Comment on above: Ordered: 03/27/2025 Neisseria gonorrhoea e DNA [Presence] in Unspecified specimen by LORETA with probe detection Neisseria gonorrhea DNA probe, direct Lab Routine Exposure to STD Ordered: 03/27/2025 [facility] Comment on above: Ordered: 03/27/2025 SURESWAB(R) ADVANCED VAGINITIS PLUS, TMA SURESWAB(R) ADVANCED VAGINITIS PLUS, TMA Pathology and Cytology Routine Vaginal discharge Ordered: 03/27/2025 [facility] Comment on above: Ordered: 03/27/2025 THIN PREP TIS PAP AN D HR HPV DNA THIN PREP TIS PAP AND HR HPV DNA Pathology and Cytology Routine Well woman exam with routine gynecological exam Ordered: 03/27/2025 [facility] Comment on above: Ordered: 03/27/2025 Immunizations Immunization Date Immunization Notes Care Provider Kirt amaya 10-03-2017 tetanus toxoid, reduced diphtheria toxoid, and acellular pertussis vaccine, adsorbed Thuy Sin APRN.MERCHANT TAILOR Work Phone: [facility] NEGATED: Highlighted row has not occurred!10-27-2020 influenza virus vaccine, unspecified formulation Sherie Morataya Jr. [facility] Payers Date Payer Category Payer Private Health Insurance [id number] 2023 Private Health Insurance [id number] 2020 Private Health Insurance [id number] 2019 Private Health Insurance [facility] [employer] [id number] 2019-Present [address] [address] [place] [address] PPO [id number] 1979 Unknown [id number] 2.16.840.1.512061.3.579. 2.593 1979 Unknown [id number] 2.16.840.1.764202.3.579. 2.593 1979 Unknown [id number] 2.16.840.1.245729.3.579. 2.593 1979 Unknown [id number] 2.16.840.1.504623.3.579. 2.727 1979 Unknown [id number] 2.16.840.1.771357.3.579. 2.727 1979 Unknown [id number] 2.16.840.1.714617.3.579. 2.1258 1979 Unknown [id number] 2.16.840.1.980490.3.579. 2.1258 1979 Unknown [id number] 2.16.840.1.911699.3.579. 2.1258 1979 Unknown [id number] 2.16.840.1.024809.3.579. 2.1258 1979 Unknown [id number] 2.16.840.1.234730.3.579. 2.1258 1979 Unknown [id number] 2.16.840.1.303987.3.579. 2.1258 1979 Unknown [id number] 2.16.840.1.506710.3.579. 2.1258 1979 Unknown [id number] 2.16.840.1.387958.3.579. 2.1258 1979 Unknown [id number] 2.16.840.1.475167.3.579. 2.1259 1959 Unknown [id number] Social History Date Type Detail Facility Start: 01-31-2017 End: 03-13-2023 Tobacco smoking status INIS Ex-smoker [facility] History of tobacco use Cigarette Smoker [facility] Start: 01-31-2017 End: 05-27-2020 Tobacco use and exposure Smokeless tobacco non-user [facility] Start: 12-08-2021 End: 03-27-2025 Alcohol intake Current drinker of alcohol (finding) [facility] Start: 01-31-2017 History SDOH Alcohol Comment occ. [facility] Start: 01-31-2017 Tobacco Comment Quit 3 years [facility] Start: 1980 Sex Assigned At Not on file C [facility] Start: 11-28-2021 End: 12-08-2021 Exposure to SARS-CoV-2 (event) Not sure [facility] Tobacco smoking status Never [facility] Start: 05-05-2021 End: 01-28-2025 Sex Assigned At Female [facility] History of tobacco use Current smoker [facility] Start: 05-27-2020 End: 01-28-2025 Cigarettes smoked current (pack per day) - Reported 0.5 [facility] Start: 05-27-2020 Alcohol Comment socially [facility] Start: 03-13-2023 Tobacco Comment Quit 4 years ago [facility] Start: 03-13-2023 Alcohol Comment Alcohol: 1-2 drinks/monthly or less [facility] Functional Status Date Assessment Result Facility 09-10-2024 Functional Status N/A [facility] Clinical Notes 12-08-2021 to 03-27-[address] LPN - 03/27/2025 11:00 AM Rolando Hernandez DPM - 01/28/2025 11:00 AM Rolando Hernandez DPM - 01/07/2025 2:15 PM EDTTelephone Encounter - Megan Sims - 05/10/2024 1:45 PM EDT Note Date & Type Note Facility 03-27-2025 History of Presen t illness Narrative Reason for Appointment: Patient ID: Anisa Samano is a 45 y.o. female who presents for Well Women Visit Patient presents today for Annual Exam. MEDICATIONS Current Outpatient Medications Medication Instructions fluconazole (DIFLUCAN) 100 mg, Oral, Daily Jardiance 25 mg, Every 24 hours lisinopril-hydroCHLOROthiazide 20-12.5 MG tablet 1 tablet, Every 24 hours metFORMIN (GLUCOPHAGE) 500 mg, 2 times daily with meals rosuvastatin (Crestor) 20 MG tablet Every 24 hours ALLERGIES No Known Allergies PROBLEMS Active Ambulatory Problems Diagnosis Date Noted No Active Ambulatory Problems Resolved Ambulatory Problems Diagnosis Date Noted No Resolved Ambulatory Problems Past Medical History: Diagnosis Date Adenocarcinoma of endometrium (HCC) Breast cancer screening by mammogram Diabetes (HCC) High cholesterol Hypertension Obesity (BMI 30-39.9) Uterine cancer (HCC) Vaginal odor Well woman exam HISTORY PAST MEDICAL HISTORY SOCIAL HISTORY Past Medical History: Diagnosis Date Adenocarcinoma of endometrium (HCC) Breast cancer screening by mammogram Diabetes (HCC) High cholesterol Hypertension Obesity (BMI 30-39.9) Uterine cancer (HCC) In remission since 2017 Vaginal odor Well woman exam Social History Tobacco Use Smoking status: Former Types: Cigarettes Smokeless tobacco: Not on file Tobacco comments: Quit 4 years ago Substance Use Topics Alcohol use: Yes Comment: Alcohol: 1-2 drinks/monthly or less Drug use: Not on file FAMILY HISTORY Family History Problem Relation Name Age of Onset Hypertension Mother Diabetes Mother Hyperlipidemia Mother Hypertension Father Diabetes Maternal Grandmother Hypertension Maternal Grandmother Stroke Maternal Grandmother Heart disease Paternal Grandfather Diabetes Sibling Hypertension Sibling No Known Problems Son 2 No Known Problems Daughter 2 SURGICAL HISTORY Past Surgical History: Procedure Laterality Date IUD INSERTION 2008 Essure PARTIAL HYSTERECTOMY 2017 PELVIC LAPAROSCOPY 1999 VAGINAL DELIVERY Childbirth x4 REVIEW OF SYSTEMS Review of Systems: Review of Systems Constitutional: Negative. HENT: Negative. Eyes: Negative. Respiratory: Negative. Cardiovascular: Negative. Gastrointestinal: Negative. Genitourinary: Positive for vaginal discharge. Musculoskeletal: Negative. Skin: Negative. Neurological: Negative. All other systems reviewed and are negative. Hematological: Negative. Endocrine: Negative. Allergic/Immunologic: Negative. OBJECTIVE Objective: Physical Exam Constitutional: Appearance: Normal appearance. She is well-developed. Genitourinary: Vulva normal. Vaginal cuff intact. Cervix is absent. Uterus is absent. Breasts: Breasts are soft. Right: Normal. Left: Normal. Cardiovascular: Rate and Rhythm: Normal rate and regular rhythm. Abdominal: General: Bowel sounds are normal. There is no distension. Palpations: Abdomen is soft. Tenderness: There is no abdominal tenderness. There is no guarding or rebound. Musculoskeletal: General: No swelling. Normal range of motion. Right lower leg: No edema. Left lower leg: No edema. Neurological: Mental Status: She is alert and oriented to person, place, and time. Skin: General: Skin is warm and dry. Psychiatric: Mood and Affect: Mood normal. Behavior: Behavior normal. Vitals and nursing note reviewed. Exam conducted with a wireless technician present. Vitals: Estimated body mass index is 33.8 kg/m as calculated from the following: Height as of 01/28/25: 5' 7 . Weight as of this encounter: 215 lb 12.8 oz. BP: 120/70 No LMP recorded. Patient has had a hysterectomy. ASSESSMENT & PLAN ICD-10-CM 1. Well woman exam with routine gynecological exam Z01.419 THIN PREP TIS PAP AND HR HPV DNA 2. Breast cancer screening by mammogram Z12.31 Bilateral screening mammogram Bilateral screening mammogram 3. Burning with urination R30.0 POCT urinalysis dipstick manually resulted fluconazole (Diflucan) 100 MG tablet 4. Exposure to STD Z20.2 CHLAMYDIA TRACHOMATIS (GENITO/STI) Neisseria gonorrhea DNA probe, direct 5. Vaginal discharge N89.8 SURESWAB(R) ADVANCED VAGINITIS PLUS, TMA fluconazole (Diflucan) 100 MG tablet Annual: Patient presents today for an annual exam. Patient states she is doing well and has complaints of hemorrhoids. Pap was obtained without difficulty and patient given mammogram order to have scheduled/obtained. Orders Placed This Encounter Procedures Bilateral screening mammogram CHLAMYDIA TRACHOMATIS (GENITO/STI) Neisseria gonorrhea DNA probe, direct POCT urinalysis dipstick manually resulted Follow Up: Patient is to return in one year for annual unless needed otherwise. Documented by Barb Lane LPN on behalf of: Deneen Smith DO documented in this encounter [facility] 01-28-2025 History of Presen t illness Narrative Images from the original note were not included. Subjective Patient ID: Anisa Samano is a 44 y.o. female who presents for Post-op ( Anisa Samano is a 44 y.o. female who presents for Post op #1 of phenol procedure of the right lateral hallux 01/07/2025.Patient relates tender to touch, continues neosporin and band aid.). HPI Patient presents for follow up of phenol procedure right lateral hallux nail. She is also here for follow up of her slant back procedure of the left lateral hallux nail. She states the right lateral toe is no longer draining but she has been continuing to cover the area and soak. Both toes are less painful Review of Systems Medications Current Outpatient Medications: acetaminophen (Tylenol) 500 MG tablet, Take 500 mg by mouth every 6 (six) hours if needed (Patient not taking: Reported on 01/07/2025), Disp: , Rfl: lisinopril-hydroCHLOROthiazide 20-12.5 MG tablet, Take 1 tablet by mouth 1 (one) time each day at the same time, Disp: , Rfl: metFORMIN (Glucophage) 500 MG tablet, Take 500 mg by mouth in the morning and 500 mg in the evening. Take with meals., Disp: , Rfl: methylPREDNISolone (Medrol Dospak) 4 MG tablets, Follow schedule on package instructions (Patient not taking: Reported on 01/07/2025), Disp: 21 tablet, Rfl: 0 rosuvastatin (Crestor) 20 MG tablet, 1 (one) time each day at the same time, Disp: , Rfl: Voltaren Arthritis Pain 1 % gel, apply topically TO KNEES TWICE DAILY (Patient not taking: Reported on 01/07/2025), Disp: , Rfl: Allergies Patient has no known allergies. Past Surgical History Past Surgical History: Procedure Laterality Date IUD INSERTION 2007 Essure PARTIAL HYSTERECTOMY 2017 PELVIC LAPAROSCOPY 1999 VAGINAL DELIVERY Childbirth x4 Family History Family History Problem Relation Name Age of Onset Hypertension Mother Diabetes Mother Hyperlipidemia Mother Hypertension Father Diabetes Maternal Grandmother Hypertension Maternal Grandmother Stroke Maternal Grandmother Heart disease Paternal Grandfather Diabetes Sibling Hypertension Sibling No Known Problems Son 2 No Known Problems Daughter 2 Objective Physical Exam Constitutional: Appearance: Normal appearance. HENT: Head: Normocephalic and atraumatic. Cardiovascular: Comments: Pedal pulses: DP 2/4 bilateral, PT 2/4 bilateral. Skin temp is warm to warm. Varicosities: absent Hair growth:present Pulmonary: Effort: Pulmonary effort is normal. Musculoskeletal: Right lower leg: No edema. Left lower leg: No edema. Comments: AJ and STJ ROM are normal and pain free. Dorsiflexion, plantarflexion, inversion, eversion are 5/5 b/l. PAIN: right lateral hallux nail fold, mild Skin: General: Skin is warm and dry. Capillary Refill: Capillary refill takes 2 to 3 seconds. Findings: No bruising or erythema. Comments: SKIN FINDINGS: Webspaces are clean and dry HYPERKERATOTIC LESION: none NAIL PATHOLOGY: The lateral nail border of the right hallux nail has been removed the nailbed is granular and healthy. Still some serous drainage present. No further inflammation or erythema noted at the lateral nail fold. There is some localized erythema at the eponychium from phenol use. There is no further inflammation or erythema noted at the left lateral hallux nail fold. There is no proximal streaking or foul odor. Skin texture and turgor: normal Neurological: Mental Status: She is alert and oriented to person, place, and time. Comments: Light touch sensation intact Assessment/Plan ICD-10-CM 1. Ingrown nail L60.0 2. Paronychia of great toe, right L03.031 3. Pain in toes of both feet M79.674 M79.675 Pt is doing well. Patient will continue tissue massage of the left lateral hallux nail to avoid future ingrown nail in his area. Right nail bed is healing as expected. Instructed pt to continue to change dressing daily until drainage ceases. Call if they notice increase in redness, swelling, pain, or drainage. RTO prn This note was created with the assistance of a speech recognition program. While intending to generate a timely document that accurately reflects the content of the visit, no guarantee can be provided that every grammatical or spelling mistake has been or will be identified or corrected. Thank you for your understanding. Aditya Hernandez DPM documented in this encounter [facility] 01-07-2025 History of Presen t illness Narrative Images from the original note were not included. Subjective Patient ID: Anisa Samano is a 44 y.o. female who presents for Ingrown Toenail. HPI Patient presents complaining of bilateral hallux nails that are painful of the lateral border. She states approximately 1-2 months ago she had a pedicure done. Shortly after that the lateral borders of both hallux nails became painful. She states that the areas has been red and swollen, no drainage. She has tried no treatments. She has previously had a right lateral hallux nail avulsion. Review of Systems Medications Current Outpatient Medications: lisinopril-hydroCHLOROthiazide 20-12.5 MG tablet, Take 1 tablet by mouth 1 (one) time each day at the same time, Disp: , Rfl: metFORMIN (Glucophage) 500 MG tablet, Take 500 mg by mouth in the morning and 500 mg in the evening. Take with meals., Disp: , Rfl: rosuvastatin (Crestor) 20 MG tablet, 1 (one) time each day at the same time, Disp: , Rfl: acetaminophen (Tylenol) 500 MG tablet, Take 500 mg by mouth every 6 (six) hours if needed (Patient not taking: Reported on 01/07/2025), Disp: , Rfl: methylPREDNISolone (Medrol Dospak) 4 MG tablets, Follow schedule on package instructions (Patient not taking: Reported on 01/07/2025), Disp: 21 tablet, Rfl: 0 Voltaren Arthritis Pain 1 % gel, apply topically TO KNEES TWICE DAILY (Patient not taking: Reported on 01/07/2025), Disp: , Rfl: Allergies Patient has no known allergies. Past Surgical History Past Surgical History: Procedure Laterality Date IUD INSERTION 2008 Essure PARTIAL HYSTERECTOMY 2017 PELVIC LAPAROSCOPY 1999 VAGINAL DELIVERY Childbirth x4 Family History Family History Problem Relation Name Age of Onset Hypertension Mother Diabetes Mother Hyperlipidemia Mother Hypertension Father Diabetes Maternal Grandmother Hypertension Maternal Grandmother Stroke Maternal Grandmother Heart disease Paternal Grandfather Diabetes Sibling Hypertension Sibling No Known Problems Son 2 No Known Problems Daughter 2 Objective Physical Exam Constitutional: Appearance: Normal appearance. HENT: Head: Normocephalic and atraumatic. Cardiovascular: Comments: Pedal pulses: DP 2/4 bilateral, PT 2/4 bilateral. Skin temp is warm to warm. Varicosities: absent Hair growth:present Pulmonary: Effort: Pulmonary effort is normal. Musculoskeletal: Right lower leg: No edema. Left lower leg: No edema. Comments: AJ and STJ ROM are normal and pain free. Dorsiflexion, plantarflexion, inversion, eversion are 5/5 b/l. PAIN: right lateral hallux nail, left distal lateral hallux nail Skin: General: Skin is warm and dry. Capillary Refill: Capillary refill takes 2 to 3 seconds. Findings: No bruising or erythema. Comments: SKIN FINDINGS: Webspaces are clean and dry HYPERKERATOTIC LESION: none NAIL PATHOLOGY: The lateral nail border of the right hallux is ingrown, the distal lateral border of the left hallux nail is ingrown. The lateral nail fold is locally inflamed along the entire border R, and only at the distal corner L. There is mild localized erythema. There is no proximal streaking or foul odor. There is scant serous drainage present. Skin texture and turgor: normal Neurological: Mental Status: She is alert and oriented to person, place, and time. Comments: Light touch sensation intact Assessment/Plan ICD-10-CM 1. Ingrown nail L60.0 2. Paronychia of great toe, right L03.031 3. Pain in toes of both feet M79.674 M79.675 I discussed treatment options with the pt. Since the distal lateral portion of the left hallux nail is the only part of the nail that is bothersome recommended a slant back procedure for this, trimming the nail without anesthesia. Pt agreed, and slant back was performed. This proved to be effective in removing the offending portion of the nail. Discussed with pt the importance of tissue massage and taping nail fold away from nail plate as nail regrows to avoid another ingrown nail. If nail does ingrow, or if it becomes painful, I explained that a nail procedure would then be needed. Pt is pleased with how the nail feels at end of treatment The entire lateral border of the right hallux nail is tender. Patient has had a nail avulsion in the past. We discussed phenol versus additional nail avulsion versus cleaning of the lateral border. Patient would like to proceed with phenol procedure of the right lateral hallux. The procedure was discussed in detail and pt understands it will likely drain for several days to weeks after. It may be painful and there could be regrowth of nail. All questions answered to their satisfaction. I explained the removal of the offending portion of toenail and matrix, followed by the application of Phenol to destroy the nail growth plate. I discussed the risks, complications, and the expected recovery course with the patient and they said they understood and agreed. After appropriate consent and verifying the correct digit, the right hallux was anesthetized with 3 mL of 2% xylocaine plain. It was then prepped and draped in the usual aseptic manner. A tourniquet was used for hemostasis. The offending lateral margin of nail was removed, matrix area curetted, and 3-30 second applications of phenol were applied to the matrix area and nail bed. The tourniquet was released, free bleeding was encountered and encouraged. A DSD was applied with moderate compression. The initial layer impregnated with Amerigel Ointment. Written and oral instructions were given to and understood by the patient. Patient will RTO in 10-14 days. This note was created with the assistance of a speech recognition program. While intending to generate a timely document that accurately reflects the content of the visit, no guarantee can be provided that every grammatical or spelling mistake has been or will be identified or corrected. Thank you for your understanding. Aditya Hernandez DPM documented in this encounter [facility] 09-10-2024 Hospital Discharg e instructions Patient Education 09/10/2024 11:33:01 Kidney Stones, Jiov-su-Iwin Kidney Stones Kidney stones are rock-like masses that form inside of the kidneys. Kidneys are organs that make pee (urine). A kidney stone may move into other parts of the urinary tract, including: The tubes that connect the kidneys to the bladder (ureters). The bladder. The tube that carries urine out of the body (urethra). Kidney stones can cause very bad pain and can block the flow of pee. The stone usually leaves your body through your pee. A doctor may need to take out the stone. What are the causes? Kidney stones may be caused by: Too much calcium in the body. This may be caused by too much parathyroid hormone in the blood. Uric acid crystals in the bladder. The body makes uric acid when you eat certain foods. Narrowing of one or both of the ureters. A kidney blockage that you were born with. Past surgery on the kidney or the ureters. What increases the risk? You are more likely to develop this condition if: You have had a kidney stone in the past. Other people in your family have had kidney stones. You do not drink enough water. You eat a diet that is high in protein, salt (sodium), or sugar. You are very overweight (obese). What are the signs or symptoms? Symptoms of a kidney stone may include: Pain in the side of the belly, right below the ribs. Pain usually spreads to the groin. Needing to pee often or right away. Pain when peeing. Blood in your pee. Feeling like you may vomit (nauseous). Vomiting. Fever and chills. How is this treated? Treatment depends on the size, location, and makeup of the kidney stones. The stones will often pass out of the body when you pee. You may need to: Drink more fluid to help pass the stone. ?In some cases, you may be given fluids through an IV tube at the hospital. Take medicine for pain. Change your diet to help keep kidney stones from coming back. Sometimes, you may need: A procedure to break up kidney stones using a beam of light (laser) or shock waves. Surgery to remove the kidney stones. Follow these instructions at home: Medicines Take cntt-tfk-xfctrrr and prescription medicines only as told by your doctor. Ask your doctor if the medicine prescribed to you requires you to avoid driving or using machinery. Eating and drinking Drink enough fluid to keep your pee pale yellow. ?You may be told to drink at least 8 10 glasses of water each day. This will help you pass the stone. If told by your doctor, change your diet. You may be told to: ?Limit how much salt you eat. ?Eat more fruits and vegetables. ?Limit how much meat, poultry, fish, and eggs you eat. Follow instructions from your doctor about what you may eat and drink. General instructions Collect pee samples as told by your doctor. You may need to collect a pee sample: ?24 hours after a stone comes out. ?8 12 weeks after a stone comes out, and every 6 12 months after that. Strain your pee every time you pee. Use the strainer that your doctor recommends. Do not throw out the stone. Keep it so that it can be tested by your doctor. Keep all follow-up visits. You may need X-rays and ultrasounds to make sure the stone has come out. How is this prevented? To prevent another kidney stone: Drink enough fluid to keep your pee pale yellow. This is the best way to prevent kidney stones. Eat healthy foods. Avoid certain foods as told by your doctor. You may be told to eat less protein. Stay at a healthy weight. Where to find more information National Kidney Foundation (NKF): kidney.org [facility] (F): urologyhealth.org Contact a doctor if: You have pain that gets worse or does not get better with medicine. Get help right away if: You have a fever or chills. You get very bad pain. You get new pain in your belly. You faint. You cannot pee. This information is not intended to replace advice given to you by your health care provider. Make sure you discuss any questions you have with your health care provider. Document Revised: 04/28/2023 Document Reviewed: 04/28/2023 [employer] Patient Education 2023 [place]. Follow Up Care 07/26/2023 11:04:22 With:Dr Danisha Salazar/Susie OWEN in 1 yr w RENETTA/ELYSE prior Address:Unknown When: Unknown [facility] 09-10-2024 Note Patient Education Urology Kidney Stones Kidney stones are rock-like masses that form inside of the kidneys. Kidneys are organs that make pee (urine). A kidney stone may move into other parts of the urinary tract, including: ??? The tubes that connect the kidneys to the bladder (ureters). ??? The bladder. ??? The tube that carries urine out of the body (urethra). Kidney stones can cause very bad pain and can block the flow of pee. The stone usually leaves your body through your pee. A doctor may need to take out the stone. What are the causes? Kidney stones may be caused by: ??? Too much calcium in the body. This may be caused by too much parathyroid hormone in the blood. ??? Uric acid crystals in the bladder. The body makes uric acid when you eat certain foods. ??? Narrowing of one or both of the ureters. ??? A kidney blockage that you were born with. ??? Past surgery on the kidney or the ureters. What increases the risk? You are more likely to develop this condition if: ??? You have had a kidney stone in the past. ??? Other people in your family have had kidney stones. ??? You do not drink enough water. ??? You eat a diet that is high in protein, salt (sodium), or sugar. ??? You are very overweight (obese). What are the signs or symptoms? Symptoms of a kidney stone may include: ??? Pain in the side of the belly, right below the ribs. Pain usually spreads to the groin. ??? Needing to pee often or right away. ??? Pain when peeing. ??? Blood in your pee. ??? Feeling like you may vomit (nauseous). ??? Vomiting. ??? Fever and chills. How is this treated? Treatment depends on the size, location, and makeup of the kidney stones. The stones will often pass out of the body when you pee. You may need to: ??? Drink more fluid to help pass the stone. ? In some cases, you may be given fluids through an IV tube at the hospital. ??? Take medicine for pain. ??? Change your diet to help keep kidney stones from coming back. Sometimes, you may need: ??? A procedure to break up kidney stones using a beam of light (laser) or shock waves. ??? Surgery to remove the kidney stones. Follow these instructions at home: Medicines ??? Take cpyh-kfa-kzyrpdr and prescription medicines only as told by your doctor. ??? Ask your doctor if the medicine prescribed to you requires you to avoid driving or using machinery. Eating and drinking ??? Drink enough fluid to keep your pee pale yellow. ? You may be told to drink at least 8?10 glasses of water each day. This will help you pass the stone. ??? If told by your doctor, change your diet. You may be told to: ? Limit how much salt you eat. ? Eat more fruits and vegetables. ? Limit how much meat, poultry, fish, and eggs you eat. ??? Follow instructions from your doctor about what you may eat and drink. General instructions ??? Collect pee samples as told by your doctor. You may need to collect a pee sample: ? 24 hours after a stone comes out. ? 8?12 weeks after a stone comes out, and every 6?12 months after that. ??? Strain your pee every time you pee. Use the strainer that your doctor recommends. ??? Do not throw out the stone. Keep it so that it can be tested by your doctor. ??? Keep all follow-up visits. You may need X-rays and ultrasounds to make sure the stone has come out. How is this prevented? To prevent another kidney stone: ??? Drink enough fluid to keep your pee pale yellow. This is the best way to prevent kidney stones. ??? Eat healthy foods. ??? Avoid certain foods as told by your doctor. You may be told to eat less protein. ??? Stay at a healthy weight. Where to find more information ??? National Kidney Foundation (NKF): kidney.org ??? [facility] (UCF): urologyhealth.org Contact a doctor if: ??? You have pain that gets worse or does not get better with medicine. Get help right away if: ??? You have a fever or chills. ??? You get very bad pain. ??? You get new pain in your belly. ??? You faint. ??? You cannot pee. This information is not intended to replace advice given to you by your health care provider. Make sure you discuss any questions you have with your health care provider. Document Revised: 04/28/2023 Document Reviewed: 04/28/2023 [employer] Patient Education ? 2023 [place]. [facility] 05-10-2024 Miscellaneous Notes Called patient in regard to colonoscopy referral. Left message on voicemail to call the office back to schedule an appointment as I was unable to make contact. Called Anisa regarding the referral that our office received, left message on voicemail to call the office back to schedule an appointment. Called Anisa regarding the referral that our office received, left message on voicemail to call the office back to schedule an appointment. documented in this encounter [facility] 05-10-2024 Telephone encounter Note Called patient in regard to colonoscopy referral. Left message on voicemail to call the office back to schedule an appointment as I was unable to make contact. [facility] 05-10-2024 Telephone encounter Note Called Anisa regarding the referral that our office received, left message on voicemail to call the office back to schedule an appointment. [facility] 05-10-2024 Telephone encounter Note Called Anisa regarding the referral that our office received, left message on voicemail to call the office back to schedule an appointment. [facility] 02-07-2022 Hospital Discharg e instructions Patient Education 02/07/2022 13:11:11 Hematuria, Adult Hematuria, Adult Hematuria is blood in the urine. Blood may be visible in the urine, or it may be identified with a test. This condition can be caused by infections of the bladder, urethra, kidney, or prostate. Other possible causes include: Kidney stones. Cancer of the urinary tract. Too much calcium in the urine. Conditions that are passed from parent to child (inherited conditions). Exercise that requires a lot of energy. Infections can usually be treated with medicine, and a kidney stone usually will pass through your urine. If neither of these is the cause of your hematuria, more tests may be needed to identify the cause of your symptoms. It is very important to tell your health care provider about any blood in your urine, even if it is painless or the blood stops without treatment. Blood in the urine, when it happens and then stops and then happens again, can be a symptom of a very serious condition, including cancer. There is no pain in the initial stages of many urinary cancers. Follow these instructions at home: Medicines Take evnl-bkq-jzqkkwt and prescription medicines only as told by your health care provider. If you were prescribed an antibiotic medicine, take it as told by your health care provider. Do not stop taking the antibiotic even if you start to feel better. Eating and drinking Drink enough fluid to keep your urine clear or pale yellow. It is recommended that you drink 3 4 quarts (2.8 3.8 L) a day. If you have been diagnosed with an infection, it is recommended that you drink cranberry juice in addition to large amounts of water. Avoid caffeine, tea, and carbonated beverages. These tend to irritate the bladder. Avoid alcohol because it may irritate the prostate (men). General instructions If you have been diagnosed with a kidney stone, follow your health care provider's instructions about straining your urine to catch the stone. Empty your bladder often. Avoid holding urine for long periods of time. If you are female: ?After a bowel movement, wipe from front to back and use each piece of toilet paper only once. ?Empty your bladder before and after sex. Pay attention to any changes in your symptoms. Tell your health care provider about any changes or any new symptoms. It is your responsibility to get your test results. Ask your health care provider, or the department performing the test, when your results will be ready. Keep all follow-up visits as told by your health care provider. This is important. Contact a health care provider if: You develop back pain. You have a fever. You have nausea or vomiting. Your symptoms do not improve after 3 days. Your symptoms get worse. Get help right away if: You develop severe vomiting and are unable take medicine without vomiting. You develop severe pain in your back or abdomen even though you are taking medicine. You pass a large amount of blood in your urine. You pass blood clots in your urine. You feel very weak or like you might faint. You faint. Summary Hematuria is blood in the urine. It has many possible causes. It is very important that you tell your health care provider about any blood in your urine, even if it is painless or the blood stops without treatment. Take ubui-gqa-fadmecj and prescription medicines only as told by your health care provider. Drink enough fluid to keep your urine clear or pale yellow. This information is not intended to replace advice given to you by your health care provider. Make sure you discuss any questions you have with your health care provider. Document Released: 09/04/2006 Document Revised: 01/29/2020 Document Reviewed: 10/07/2017 [employer] Patient Education 2020 [place]. Follow Up Care 01/12/2022 10:50:50 With:Hood Cruz MD, Sherie De Leon, URO Address: [facility] [address] , [place] [id number]- When:6 weeks Comments:[place] [facility] [place] 01-11-2022 Hospital Discharg e instructions Patient Education 01/11/2022 12:35:16 Hematuria, Adult Hematuria, Adult Hematuria is blood in the urine. Blood may be visible in the urine, or it may be identified with a test. This condition can be caused by infections of the bladder, urethra, kidney, or prostate. Other possible causes include: Kidney stones. Cancer of the urinary tract. Too much calcium in the urine. Conditions that are passed from parent to child (inherited conditions). Exercise that requires a lot of energy. Infections can usually be treated with medicine, and a kidney stone usually will pass through your urine. If neither of these is the cause of your hematuria, more tests may be needed to identify the cause of your symptoms. It is very important to tell your health care provider about any blood in your urine, even if it is painless or the blood stops without treatment. Blood in the urine, when it happens and then stops and then happens again, can be a symptom of a very serious condition, including cancer. There is no pain in the initial stages of many urinary cancers. Follow these instructions at home: Medicines Take oaql-psv-nljmqei and prescription medicines only as told by your health care provider. If you were prescribed an antibiotic medicine, take it as told by your health care provider. Do not stop taking the antibiotic even if you start to feel better. Eating and drinking Drink enough fluid to keep your urine clear or pale yellow. It is recommended that you drink 3 4 quarts (2.8 3.8 L) a day. If you have been diagnosed with an infection, it is recommended that you drink cranberry juice in addition to large amounts of water. Avoid caffeine, tea, and carbonated beverages. These tend to irritate the bladder. Avoid alcohol because it may irritate the prostate (men). General instructions If you have been diagnosed with a kidney stone, follow your health care provider's instructions about straining your urine to catch the stone. Empty your bladder often. Avoid holding urine for long periods of time. If you are female: ?After a bowel movement, wipe from front to back and use each piece of toilet paper only once. ?Empty your bladder before and after sex. Pay attention to any changes in your symptoms. Tell your health care provider about any changes or any new symptoms. It is your responsibility to get your test results. Ask your health care provider, or the department performing the test, when your results will be ready. Keep all follow-up visits as told by your health care provider. This is important. Contact a health care provider if: You develop back pain. You have a fever. You have nausea or vomiting. Your symptoms do not improve after 3 days. Your symptoms get worse. Get help right away if: You develop severe vomiting and are unable take medicine without vomiting. You develop severe pain in your back or abdomen even though you are taking medicine. You pass a large amount of blood in your urine. You pass blood clots in your urine. You feel very weak or like you might faint. You faint. Summary Hematuria is blood in the urine. It has many possible causes. It is very important that you tell your health care provider about any blood in your urine, even if it is painless or the blood stops without treatment. Take pznt-eax-nrqwlla and prescription medicines only as told by your health care provider. Drink enough fluid to keep your urine clear or pale yellow. This information is not intended to replace advice given to you by your health care provider. Make sure you discuss any questions you have with your health care provider. Document Released: 09/04/2006 Document Revised: 01/29/2020 Document Reviewed: 10/07/2017 [employer] Patient Education 2019 [employer] Follow Up Care 12/14/2021 09:47:44 With:Hood Cruz MD, Sherie De Leon URO Address: [facility] [address] [place] [address]- When: Unknown [facility] 12-10-2021 Miscellaneous Notes Spoke with patient and relayed message from [employer]. Agreeable to plan. Will see her local Urolgist (she has a hx kidney stones). Order and UA results emailed to patient per her request Please let patient know urinalysis showing a small amount of red blood cells in the urine. The urine culture is negative for an infection. I would recommend patient see a urologist given there is some blood in the urine, along with patients reports of blood noted after urination. She can see a local urologist-I placed an order in our system which can be printed and mailed if needed. The most recent pelvic US she had completed at [facility] was 05/2021 and was normal. thanks documented in this encounter [facility] 12-08-2021 Note HNO ID: [id number] Author: Thuy Sin APRN.MERCHANT TAILOR Service: ? Author Type: Nurse Practitioner Type: Progress Notes Filed: 12/10/2021 1:11 PM Note Text: DATE OF SERVICE: 12/08/2021 PROBLEM: Follow up for endometrial cancer. HPI: Ms. Samano is a 41 year old female with past medical history of HTN and prior essure who underwent supra-cervical abdominal hysterectomy and salpingectomy on 12/30/2016 for abnormal uterine bleeding. Her pathology came back c/w grade 1 endometrial cancer limited to the endometrium. Intra-operatively per operative report, her ovaries were normal. 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 FINAL DIAGNOSIS 1. Uterus, supracervical hysterectomy (BH17): Endometrium - Well-differentiated endometrial adenocarcinoma, mucinous type, FIGO grade 1, associated with complex atypical endometrial hyperplasia. Myometrium - Adenomyosis. 2. Fallopian tubes, right and left, excision (BS17-71) - Negative for neoplasm. COMMENT The endometrium is almost completely replaced by a proliferative lesion including atypical endometrial hyperplasia and well-differentiated mucinous adenocarcinoma. The atypical hyperplasia slightly predominates. Myometrial invasion is not identified. Vascular invasion is not identified. ? MMR testing was normal. CT scan C/A/P 08/01/2017 IMPRESSION: 1. No evidence of intra-abdominal/pelvic metastases. 2. Previously noted cystic density in the left adnexa has resolved. 3. 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 4. Nonobstructing left renal stone. 5. Diffuse fatty infiltration of the liver. IMPRESSION: 1. Nonspecific subcentimeter sclerotic density in the T7 vertebral body, stable. 2. Otherwise no evidence of intrathoracic metastases. No interval change since 02/07/2017. 3. Findings compatible with previous granulomatous disease. 03/12/2019 Pelvis US Nonspecific hyperechoic (1.4 x 1.0 x 1.1) within the left ovary. Hemorrhagic cyst vs. Dermoid, favoring hemorrhagic. New since 2017. Pelvic US 09/27/2019 PELVIC US 05/30/2020 PELVIC ULTRASOUND 05/2021 SUBJECTIVE HISTORY: Anisa Samano reports that she feels well. No vaginal bleeding or discharge. No shortness of breath, cough, or chest pain. No abdominal pain, nausea, vomiting, diarrhea, or constipation. No dysuria, gross hematuria, urinary frequency, urinary urgency, or incontinence. Her ECOG performance status is zero (fully active, able to carry on all pre-disease performance without restriction). Continues to follow regularly with scholastic aptitude test grader close to home OBJECTIVE: BP 133/80 Pulse 101 Temp 37 ?C (98.6 ?F) Resp 14 Wt 111.5 kg (245 lb 12.8 oz) BMI 38.22 kg/m? GENERAL: alert, oriented, pleasant and cooperative. HEENT: Normocephalic and atraumatic. HEART: Regular rate and rhythm, no murmurs. LUNGS: Clear to auscultation bilaterally. Good air exchange. ABDOMEN: Abdomen soft, non-tender, nondistended PELVIC: External genitalia, anus and urethral meatus are normal in appearance and without lesions. Vagina and remaining cervix are normal in appearance on speculum examination. Bimanual pelvic and rectovaginal examination were negative for urethral, bladder or pelvic masses, parametrial thickening or cul-de-sac nodularity. There were no rectal masses. 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 12/2016 Normal MMR expression Ovarian cysts-resolved ?hematuria PLAN: - doing well, no clinical evidence of disease recurrence on exam - patient notes blood after urination-unsure of source. Only noted when toileting. Will follow up with UA and urine culture. - pap/hpv up to date - annual pelvic ultrasound-most recently completed 05/2021 OSH-reviewed and normal. - chest xray 10/2020 normal - mammogram up to date at OSH - RTC 12 months, patient elects to following with in [place]. Can provide any records that are needed to help facilitate this transfer of care. - may return to our office in the future with any questions or concerns Thuy Sin APRN.MERCHANT TAILOR Medical Decision Making: Problems: Moderate: New problem with uncertain prognosis Data: Unique test(s) ordered: 1 Risk: Low: Low risk from testing/treatment Medical Decision Making Level: 3 - Low [facility] 12-08-2021 History of Presen t illness Narrative Images from the original note were not included. DATE OF SERVICE: 12/08/2021 PROBLEM: Follow up for endometrial cancer. HPI: Ms. Samano is a 41 year old female with past medical history of HTN and prior essure who underwent supra-cervical abdominal hysterectomy and salpingectomy on 12/30/2016 for abnormal uterine bleeding. Her pathology came back c/w grade 1 endometrial cancer limited to the endometrium. Intra-operatively per operative report, her ovaries were normal. 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 FINAL DIAGNOSIS 1. Uterus, supracervical hysterectomy (BH17-71): Endometrium - Well-differentiated endometrial adenocarcinoma, mucinous type, FIGO grade 1, associated with complex atypical endometrial hyperplasia. Myometrium - Adenomyosis. 2. Fallopian tubes, right and left, excision (BS17-71) - Negative for neoplasm. COMMENT The endometrium is almost completely replaced by a proliferative lesion including atypical endometrial hyperplasia and well-differentiated mucinous adenocarcinoma. The atypical hyperplasia slightly predominates. Myometrial invasion is not identified. Vascular invasion is not identified. MMR testing was normal. CT scan C/A/P 08/01/2017 IMPRESSION: 1. No evidence of intra-abdominal/pelvic metastases. 2. Previously noted cystic density in the left adnexa has resolved. 3. 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 4. Nonobstructing left renal stone. 5. Diffuse fatty infiltration of the liver. IMPRESSION: 1. Nonspecific subcentimeter sclerotic density in the T7 vertebral body, stable. 2. Otherwise no evidence of intrathoracic metastases. No interval change since 02/07/2017. 3. Findings compatible with previous granulomatous disease. 03/12/2019 Pelvis US Nonspecific hyperechoic (1.4 x 1.0 x 1.1) within the left ovary. Hemorrhagic cyst vs. Dermoid, favoring hemorrhagic. New since 2017. Pelvic US 09/27/2019 PELVIC US 05/30/2020 PELVIC ULTRASOUND 05/2021 SUBJECTIVE HISTORY: Anisa Samano reports that she feels well. No vaginal bleeding or discharge. No shortness of breath, cough, or chest pain. No abdominal pain, nausea, vomiting, diarrhea, or constipation. No dysuria, gross hematuria, urinary frequency, urinary urgency, or incontinence. Her ECOG performance status is zero (fully active, able to carry on all pre-disease performance without restriction). Continues to follow regularly with scholastic aptitude test grader close to home OBJECTIVE: BP 133/80 Pulse 101 Temp 37 C (98.6 F) Resp 14 Wt 111.5 kg (245 lb 12.8 oz) BMI 38.22 kg/m GENERAL: alert, oriented, pleasant and cooperative. HEENT: Normocephalic and atraumatic. HEART: Regular rate and rhythm, no murmurs. LUNGS: Clear to auscultation bilaterally. Good air exchange. ABDOMEN: Abdomen soft, non-tender, nondistended PELVIC: External genitalia, anus and urethral meatus are normal in appearance and without lesions. Vagina and remaining cervix are normal in appearance on speculum examination. Bimanual pelvic and rectovaginal examination were negative for urethral, bladder or pelvic masses, parametrial thickening or cul-de-sac nodularity. There were no rectal masses. 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 12/2016 Normal MMR expression Ovarian cysts-resolved ?hematuria PLAN: - doing well, no clinical evidence of disease recurrence on exam - patient notes blood after urination-unsure of source. Only noted when toileting. Will follow up with UA and urine culture. - pap/hpv up to date - annual pelvic ultrasound-most recently completed 05/2021 OSH-reviewed and normal. - chest xray 10/2020 normal - mammogram up to date at OSH - RTC 12 months, patient elects to following with in [place]. Can provide any records that are needed to help facilitate this transfer of care. - may return to our office in the future with any questions or concerns Thuy Sin APRN.CNP Medical Decision Making: Problems: Moderate: New problem with uncertain prognosis Data: Unique test(s) ordered: 1 Risk: Low: Low risk from testing/treatment Medical Decision Making Level: 3 - Low documented in this encounter [facility] Evaluation + Plan note Future Appointments Appointment Date:07/19/2022 11:15:00 AM Scheduled Provider:Sherie Morataya Jr., MD Location:[facility] Appointment Type:URO Office Visit Diagnostic Tests PendingUrine Cytology ([facility]) 01/11/22 [facility] Evaluation + Plan note Future Appointments Appointment Date:03/29/2022 11:00:00 AM Scheduled Provider:Sherie Morataya Jr., MD Location:[facility] Appointment Type:URO Office Visit Appointment Date:07/19/2022 11:15:00 AM Scheduled Provider:Sherie Morataya Jr., MD Location:[facility] Appointment Type:URO Office Visit [facility] Evaluation + Plan note Future Appointments Appointment Date:09/24/2025 10:45:00 AM Scheduled Provider:Danisha Salazar MD Location:[facility] Appointment Type:URO Office Visit [facility] Evaluation note Diagnosis Encounter for follow-up surveillance of endometrial cancer- Primary Unspecified follow-up examination Hematuria, unspecified type [facility] Hematuria, unspecified type- Primary [facility] Diagnosis Ingrown nail- Primary Ingrowing nail Paronychia of great toe, right Pain in toes of both feet documented in this encounter [facility] HealthcareEvaluation [facility]* Diagnosis Ingrown nail- Primary Ingrowing nail Paronychia of great toe, right Pain in toes of both feet documented in this encounter [facility] HealthcareEvaluation note* Diagnosis Well woman exam with routine gynecological exam Routine gynecological examination Breast cancer screening by mammogram Burning with urination Dysuria Exposure to STD Vaginal discharge Leukorrhea, not specified as infective [facility] Narrative No data available for this section [facility] InstructionsNot on filedocumented in this encounter [facility] No data available for this section [facility] Summary Purpose Family History No Family History Records FoundNo Family History Records FoundNo Family History Records Found No data available for this section No Family History Records FoundNo Family History Records Found Advance Directives No Advanced Directives Records FoundNo Advanced Directives Records FoundNo Advanced Directives Records FoundNo Advanced Directives Records FoundNo Advanced Directives Records Found Reason for Referral Specialty Diagnoses / Procedures Referred By Edwige alvarenga Referred To Contact Urology Diagnoses Hematuria, unspecified type Procedures CONSULT TO UROLOGY OFFICE/OUTPATIENT [facility] MDM 60-74 MINUTES Thuy Sin, FIRST FRONT VENTILATOR.MERCHANT TAILOR [id number] [place] [address] Referral ID Status Reason Start Date Expiration Date Visits Requested Visits Authorized [id number] Authorized PCP Requested Referral 12/10/2021 12/10/2022 1 1 Additional Source Comments INFORMATION SOURCE (unrecogn ized section and content) DATE CREATED AUTHOR 03/22/2018 [facility] DATE CREATED AUTHOR AUTHOR'S ORGANIZ ATION 12/14/2021 [facility] DATE CREATED AUTHOR AUTHOR'S ORGANIZ ATION 09/27/2022 [facility] DATE CREATED AUTHOR AUTHOR'S ORGANIZ ATION 09/30/2024 [facility] DATE CREATED AUTHOR AUTHOR'S ORGANIZ ATION 01/29/2025 [facility] EPIC Source Comments (unrecognize d section and content) In the event this informatio n is protected by the Federal Confidentiality of Alcohol and Drug Abuse Patient Records regulations: The Federal rules restrict any use of the information to criminally investigate or prosecute any alcohol or drug abuse patient.[facility] the event this information is protected by the Federal Confidentiality of Alcohol and Drug Abuse Patient Records regulations: The Federal rules restrict any use of the information to criminally investigate or prosecute any alcohol or drug abuse patient.[facility] Reason for Visit (unrecogniz ed section and content) Reason Comments Follow Up Specialty Diagnoses / Procedures Referred By Edwige alvarenga Referred To Contact COMMUNICATIONS EDITOR / GYNECOLOGY ONCOLOGY Diagnoses 1 year follow up taussig Procedures EST WHI PATIENT Ronny Moseley [address] [place] [address] Felicitas Medeiros [address] [place] [address] Referral ID Status Reason Start Date Expiration Date V isits Requested Visits Authorized [id number] Closed Financial Clearance Not Required 09/04/2020 12/03/2020 1 1 Reason Comments Results Reason Comments Ingrown Toenail Reason Comments Post-op Anisa Samano is a 44 y.o. female who presents for Post op #1 of phenol procedure of the right lateral hallux 01/07/2025.Patient relates tender to touch, continues neosporin and band aid. Reason Comments [facility] Visit Care Teams (unrecognized sec tion and content) City Supervisor Relationship Specialty Start Date End Date Deneen Smith Gonzalo Referring Obstetrics 01/20/17 City Supervisor Relationship Specialty Start Date End Date Deneen Smith Gonzalo Referring Obstetrics 01/20/17 City Supervisor Relationship Specialty Start Date End Date Travis Orlando PA-C [address] [place] [address] PCP - General Physician Cigarette Machines Mechanic 05/16/24 City Supervisor Relationship Specialty Start Date End Date Altaf Sánchez MD [address] [place] [phone] PCP - General Family Medicine 03/14/23 City Supervisor Relationship Specialty Start Date End Date Altaf Sánchez MD [address] [place] [phone] PCP - General Family Medicine 03/14/23 City Supervisor Relationship Specialty Start Date End Date Altaf Sánchez MD [address] [place] [address] PCP - General Family Medicine 03/14/23 City Supervisor Relationship Specialty Start Date End Date Altaf Sánchez MD [address] [place] [phone] PCP - General Family Medicine 03/14/23 City Supervisor Relationship Specialty Start Date End Date Altaf Sánchez MD [address] [place] [address] PCP - General Family Medicine 03/14/23 FOR RECORDS PERTAINING TO PATIENTS WHO ARE OR HAVE BEEN ENROLLED IN A CHEMICAL DEPENDENCY/SUBSTANCEABUSE PROGRAM, SOME INFORMATION MAY BE OMITTED. This clinical summary was aggregated from multiple sources. Caution should be exercised in using it in the provision of clinical care. This summary normalizes information from multiple sources, and as a consequence, information in this document may materially change the coding, format and clinical context of patient data. In addition, data may be omitted in some cases. CLINICAL DECISIONS SHOULD BE BASED ON THE PRIMARY CLINICAL RECORDS. [facility] [employer] [facility] provides no warranty or guarantee of the accuracy or completeness of information in this document.
== END 2025-03-27 19:22 | disposition home or self-care (01) ==
LOC: LAB 19:21
PROVIDERS: Visit Provider Obstetrics & Gynecology
DX: Z01.419 Encounter for gynecological examination (general) (routine) without abnormal findings (principal)
CPT/HCPCS: 88175